=== PATIENT | male | born 1945 | race Hispanic/Latino ===

== ENCOUNTER → 2019-04-29 | Day surgery (SDC) | payer OTHER, MEDICARE ==
[2019-04-19 12:40] LABS: BASOPHILS % 0.7 % (0.0-1.0); EOSINOPHILS # (AUTO) 0.1 (0.0-0.4); HEMATOCRIT 37.9 % (38.2-49.6); HEMOGLOBIN 12.8 g/dL (14.0-18.0); LYMPHOCYTES # (AUTO) 1.7 (1.0-3.2); LYMPHOCYTES % 27.5 % (18.0-39.1); MEAN CORPUSCULAR HEMOGLOBIN 31.4 pg (28-32); MEAN CORPUSCULAR HGB CONC 33.8 g/dL (31-35); MEAN CORPUSCULAR VOLUME 93.1 fL (81-99); MONOCYTES # (AUTO) 0.5 (0.2-0.8); MONOCYTES % 7.7 % (4.4-11.3); NEUTROPHILS # (AUTO) 3.8 (2.1-6.9); NEUTROPHILS % 61.9 % (38.7-80.0); PLATELET COUNT 246 x10e3/uL (140-360); RED BLOOD COUNT 4.07 x10e6/uL (4.3-5.7); RED CELL DISTRIBUTION WIDTH 13.1 % (11.7-14.4)
[~2019-04-29] MED LIST: ASPIR 8181 MG PO; ATORVASTATIN CA20 MG PO; CLOPIDOGREL75 MG PO; GLIPIZIDE ER5 MG PO; ISOSORBIDE MONO20 MG PO; LIDOCAINE HCL 2% LOCAL INJ 5 ML SDV VIAL INJ ONE; LOSARTAN POTAS100 MG PO; METFORMIN HCL850 MG PO; METOPROLOL SUCC50 MG PO; MIDAZOLAM HCL 2 MG/2 ML VIAL ONE; PROPOFOL IV EMULSION 10 MG/ML 50 ML VIAL ONE
[2019-04-29 09:15] VITALS: BP 143/85
== END | disposition home or self-care (01) ==
LOC: OR 06:16
PROVIDERS: ATTEND Internal Medicine Gastroenterology
DX: R12 Heartburn (principal); E11.9 Type 2 diabetes mellitus without complications; I10 Essential (primary) hypertension; E66.3 Overweight; Z68.25 Body mass index [BMI] 25.0-25.9, adult; K21.9 Gastro-esophageal reflux disease without esophagitis; G47.33 Obstructive sleep apnea (adult) (pediatric); I25.10 Atherosclerotic heart disease of native coronary artery without angina pectoris; Z95.5 Presence of coronary angioplasty implant and graft; I48.91 Unspecified atrial fibrillation; K57.30 Diverticulosis of large intestine without perforation or abscess without bleeding; K64.8 Other hemorrhoids; K21.0 Gastro-esophageal reflux disease with esophagitis; K29.70 Gastritis, unspecified, without bleeding; Z01.810 Encounter for preprocedural cardiovascular examination; Z01.812 Encounter for preprocedural laboratory examination; D12.3 Benign neoplasm of transverse colon; Z79.82 Long term (current) use of aspirin; Z79.84 Long term (current) use of oral hypoglycemic drugs
CPT/HCPCS: 36415 ×2; 43239; 45385; 82948; 85025; 88305; 88312; 93005; J2001; J2250; J2704

== ENCOUNTER 2020-11-09 13:25 | Inpatient (IN) | payer MEDICARE, OTHER ==
[~2020-11-09] VITALS: Ht 177.8 cm; Wt 83.0 kg
[~2020-11-09 13:25] MED LIST changes: +FENTANYL CITRATE/PF 100MCG/2 ML INJ ONE; -LIDOCAINE HCL 2% LOCAL INJ 5 ML SDV VIAL INJ ONE; -PROPOFOL IV EMULSION 10 MG/ML 50 ML VIAL ONE
[2020-11-09] MEDS ORDERED: DEXTROSE 5%/0.9% SOD CHL 1,000 ML IV ONE (15:15)
[2020-11-09 15:30] LABS: BASOPHILS % 0.1 % (0.0-1.0); HEMATOCRIT 44.6 % (38.2-49.6); HEMOGLOBIN 15.2 g/dL (14.0-18.0); LYMPHOCYTES # (AUTO) 0.7 (1.0-3.2); LYMPHOCYTES % 3.4 % (18.0-39.1); MEAN CORPUSCULAR HEMOGLOBIN 31.8 pg (28-32); MEAN CORPUSCULAR HGB CONC 34.1 g/dL (31-35); MEAN CORPUSCULAR VOLUME 93.3 fL (81-99); MONOCYTES # (AUTO) 0.9 (0.2-0.8); MONOCYTES % 4.2 % (4.4-11.3); NEUTROPHILS # (AUTO) 19.1 (2.1-6.9); NEUTROPHILS % 91.6 % (38.7-80.0); PLATELET COUNT 263 x10e3/uL (140-360); RED BLOOD COUNT 4.78 x10e6/uL (4.3-5.7); RED CELL DISTRIBUTION WIDTH 13.4 % (11.7-14.4)
[2020-11-09 15:49] LABS: ALBUMIN/GLOBULIN RATIO 1.1 (0.8-2.0); ANION GAP 18.6 mmol/L (8-16); CALCIUM 7.7 mg/dL (8.4-10.2); CREATININE, SERUM 2.54 mg/dL (0.72-1.25)
[2020-11-09 15:50] VITALS: BP 139/80
[2020-11-09 15:55] LABS: POTASSIUM 5.6 mmol/L (3.5-5.1)
[2020-11-09 15:59] VITALS: BP 139/80
[2020-11-09 16:23] VITALS: BP 139/80
[2020-11-09 16:29] VITALS: BP 139/80
[2020-11-09] MEDS ORDERED: DEXTROSE 50% SYRINGE 50 ML IV PRN (16:45)
[2020-11-09] MEDS ORDERED: ACETAMINOPHEN 325 MG TAB PO PRN (16:45)
[2020-11-09] MEDS ORDERED: HYDRALAZINE HCL 20 MG/ML VIAL IV PRN (16:45)
[2020-11-09] MEDS ORDERED: ATROPINE SULFATE 1 MG/ML VIAL ONE (17:38)
[2020-11-09] MEDS ORDERED: SUCCINYLCHOLINE CHLORIDE 20 MG/ML 10ML VIAL ONE (17:38)
[2020-11-09] MEDS ORDERED: NEOSTIGMINE 1 MG/ML 10ML VIAL ONE (17:38)
[2020-11-09] MEDS ORDERED: POVIDONE IODINE 0.05% 0.05 % ML PO ONE (17:38)
[2020-11-09] MEDS ORDERED: KETOROLAC TROMETHAMINE 30 MG/ML VIAL ONE (17:38)
[2020-11-09] MEDS ORDERED: LIDOCAINE HCL 2% LOCAL INJ 5 ML SDV VIAL INJ ONE (17:38)
[2020-11-09] MEDS ORDERED: ONDANSETRON HCL INJ 2MG/ML 2ML 2 MG/ML VIAL ONE (17:38)
[2020-11-09] MEDS ORDERED: CEFOXITIN SOD 1 GM VIAL ONE (17:38)
[2020-11-09] MEDS ORDERED: PROPOFOL IV EMULSION 10 MG/ML 20 ML VIAL ONE (17:38)
[2020-11-09] MEDS ORDERED: ROCURONIUM BROMIDE 10 MG/ML 5ML VIAL IV ONE (17:38)
[2020-11-09] MEDS ORDERED: SEVOFLURANE INHAL SOLN 250 ML PEN BTL ONE (17:38)
[2020-11-09] MEDS ORDERED: ELIQUIS5 MG PO (17:55)
[2020-11-09] MEDS ORDERED: AMIODARONE HCL200 MG PO (17:55)
[2020-11-09] MEDS ORDERED: ULTRAM50 MG PO (17:56)
[2020-11-09] MEDS ORDERED: MORPHINE SULFATE INJ 2 MG/ML SYR IV PRN (18:30)
[2020-11-09] MEDS: PIPERACILLIN/TAZOBACTAM 3.375 GM in SODIUM CHLORIDE 0.9% 50ML 50 ML IV SCH (20:00)
[2020-11-09] MEDS ORDERED: PIPERACILLIN/TAZOBACTAM 3.375 GM in SODIUM CHLORIDE 0.9% 50ML 50 ML IV SCH (20:00)
[2020-11-09] MEDS ORDERED: MEPERIDINE HCL INJ 25 MG/ML VIAL ONE (20:23)
[2020-11-09] MEDS: INSULIN LISPRO 100 UNIT/1 ML 3ML VIAL SQ SCH (21:00)
[2020-11-09] MEDS: ATORVASTATIN 40 MG TAB PO SCH (21:00)
[2020-11-09] MEDS: LACTATED RINGER'S 1,000 ML INJ SCH (21:52)
[2020-11-09 22:03] VITALS: BP 127/77
[2020-11-10] VITALS (11 sets, daily range): BP systolic 119–136; BP diastolic 69–76
[2020-11-10] MEDS: MORPHINE SULFATE INJ 4 MG/ML INJ 1ML IV PRN ×3 (01:00→21:17)
[2020-11-10] MEDS: PIPERACILLIN/TAZOBACTAM 3.375 GM in SODIUM CHLORIDE 0.9% 50ML 50 ML IV SCH ×4 (02:13→21:04)
[2020-11-10] MEDS: LACTATED RINGER'S 1,000 ML INJ SCH ×3 (04:30→21:04)
[2020-11-10 04:59] LABS: BASOPHILS % 0.4 % (0.0-1.0); HEMATOCRIT 39.9 % (38.2-49.6); HEMOGLOBIN 13.8 g/dL (14.0-18.0); LYMPHOCYTES # (AUTO) 0.5 (1.0-3.2); LYMPHOCYTES % 6.3 % (18.0-39.1); MEAN CORPUSCULAR HEMOGLOBIN 31.7 pg (28-32); MEAN CORPUSCULAR HGB CONC 34.6 g/dL (31-35); MEAN CORPUSCULAR VOLUME 91.5 fL (81-99); MONOCYTES # (AUTO) 0.6 (0.2-0.8); MONOCYTES % 7.9 % (4.4-11.3); NEUTROPHILS # (AUTO) 6.8 (2.1-6.9); NEUTROPHILS % 85.3 % (38.7-80.0); PLATELET COUNT 211 x10e3/uL (140-360); RED BLOOD COUNT 4.36 x10e6/uL (4.3-5.7); RED CELL DISTRIBUTION WIDTH 13.2 % (11.7-14.4)
[2020-11-10 05:29] LABS: ALBUMIN 2.9 g/dL (3.5-5.0); ALBUMIN/GLOBULIN RATIO 1.1 (0.8-2.0); ANION GAP 16.3 mmol/L (8-16); CALCIUM 7.6 mg/dL (8.4-10.2); CREATININE, SERUM 1.91 mg/dL (0.72-1.25); POTASSIUM 4.3 mmol/L (3.5-5.1)
[2020-11-10] MEDS: INSULIN LISPRO 100 UNIT/1 ML 3ML VIAL SQ SCH ×4 (07:30→21:00)
[2020-11-10] MEDS: ISOSORBIDE MONONITRATE 30 MG TAB CR PO SCH (08:20)
[2020-11-10] MEDS: ASPIRIN 81 MG CHEW TAB PO SCH (08:20)
[2020-11-10] MEDS: METOPROLOL SUCCINATE 50 MG TAB XL PO SCH (08:21)
[2020-11-10 10:53] LABS: NEUTROPHILS % (MANUAL) 82 % (40-74)
[2020-11-10 10:54] LABS: BAND NEUTROPHILS % (MANUAL) 6 %; LYMPHOCYTES % (MANUAL) 6 % (19-48); METAMYELOCYTES % (MANUAL) 1 % (0-0); MONOCYTES % (MANUAL) 3 % (3.4-9.0)
[2020-11-10 10:59] LABS: PLATELET ESTIMATE ADEQUATE; PLATELET MORPHOLOGY COMMENT NORMAL; RBC MORPHOLOGY COMMENT NORMAL
[2020-11-10] MEDS: ONDANSETRON HCL INJ 2MG/ML 2ML 2 MG/ML VIAL IV PRN (15:51)
[2020-11-10] MEDS: ATORVASTATIN 40 MG TAB PO SCH (19:33)
[2020-11-11] VITALS (8 sets, daily range): BP systolic 126–149; BP diastolic 74–83
[2020-11-11] MEDS: PIPERACILLIN/TAZOBACTAM 3.375 GM in SODIUM CHLORIDE 0.9% 50ML 50 ML IV SCH ×4 (02:25→20:42)
[2020-11-11] MEDS: LACTATED RINGER'S 1,000 ML INJ SCH ×3 (05:40→19:25)
[2020-11-11 05:50] LABS: BASOPHILS % 0.2 % (0.0-1.0); EOSINOPHILS % 0.8 % (0.0-6.0); HEMATOCRIT 34.2 % (38.2-49.6); HEMOGLOBIN 11.7 g/dL (14.0-18.0); LYMPHOCYTES # (AUTO) 0.8 (1.0-3.2); LYMPHOCYTES % 15.8 % (18.0-39.1); MEAN CORPUSCULAR HEMOGLOBIN 31.6 pg (28-32); MEAN CORPUSCULAR HGB CONC 34.2 g/dL (31-35); MEAN CORPUSCULAR VOLUME 92.4 fL (81-99); MONOCYTES # (AUTO) 0.4 (0.2-0.8); MONOCYTES % 8.1 % (4.4-11.3); NEUTROPHILS # (AUTO) 3.8 (2.1-6.9); NEUTROPHILS % 74.9 % (38.7-80.0); PLATELET COUNT 162 x10e3/uL (140-360); RED CELL DISTRIBUTION WIDTH 13.4 % (11.7-14.4)
[2020-11-11 06:13] LABS: ALBUMIN 2.5 g/dL (3.5-5.0); ALBUMIN/GLOBULIN RATIO 0.9 (0.8-2.0); ANION GAP 15.7 mmol/L (8-16); CALCIUM 7.8 mg/dL (8.4-10.2); CREATININE, SERUM 1.18 mg/dL (0.72-1.25); POTASSIUM 3.7 mmol/L (3.5-5.1)
[2020-11-11] MEDS: INSULIN LISPRO 100 UNIT/1 ML 3ML VIAL SQ SCH ×4 (07:30→19:09)
[2020-11-11 08:09] LABS: BAND NEUTROPHILS % (MANUAL) 3 %; EOSINOPHILS % (MANUAL) 1 % (0-7); LYMPHOCYTES % (MANUAL) 19 % (19-48); MONOCYTES % (MANUAL) 7 % (3.4-9.0); NEUTROPHILS % (MANUAL) 70 % (40-74)
[2020-11-11] MEDS: ASPIRIN 81 MG CHEW TAB PO SCH (08:13)
[2020-11-11] MEDS: METOPROLOL SUCCINATE 50 MG TAB XL PO SCH (08:16)
[2020-11-11] MEDS: ISOSORBIDE MONONITRATE 30 MG TAB CR PO SCH (08:16)
[2020-11-11] MEDS: MORPHINE SULFATE INJ 4 MG/ML INJ 1ML IV PRN ×3 (11:38→23:23)
[2020-11-11] MEDS: ATORVASTATIN 40 MG TAB PO SCH (18:55)
[2020-11-12] VITALS (9 sets, daily range): BP systolic 128–152; BP diastolic 75–90
[2020-11-12] MEDS: PIPERACILLIN/TAZOBACTAM 3.375 GM in SODIUM CHLORIDE 0.9% 50ML 50 ML IV SCH ×4 (02:30→20:55)
[2020-11-12] MEDS: LACTATED RINGER'S 1,000 ML INJ SCH ×3 (02:33→20:15)
[2020-11-12 05:40] LABS: BASOPHILS % 0.2 % (0.0-1.0); EOSINOPHILS # (AUTO) 0.2 (0.0-0.4); EOSINOPHILS % 2.8 % (0.0-6.0); HEMATOCRIT 33.2 % (38.2-49.6); HEMOGLOBIN 11.2 g/dL (14.0-18.0); LYMPHOCYTES # (AUTO) 1.1 (1.0-3.2); LYMPHOCYTES % 17.6 % (18.0-39.1); MEAN CORPUSCULAR HEMOGLOBIN 31.4 pg (28-32); MEAN CORPUSCULAR HGB CONC 33.7 g/dL (31-35); MONOCYTES # (AUTO) 0.5 (0.2-0.8); MONOCYTES % 7.4 % (4.4-11.3); NEUTROPHILS # (AUTO) 4.4 (2.1-6.9); NEUTROPHILS % 71.8 % (38.7-80.0); PLATELET COUNT 162 x10e3/uL (140-360); RED BLOOD COUNT 3.57 x10e6/uL (4.3-5.7)
[2020-11-12 06:09] LABS: ALANINE AMINOTRANSFERASE 14 IU/L (0-55); ALBUMIN 2.3 g/dL (3.5-5.0); ALBUMIN/GLOBULIN RATIO 0.8 (0.8-2.0); ALKALINE PHOSPHATASE 34 IU/L (40-150); ANION GAP 13.6 mmol/L (8-16); BLOOD UREA NITROGEN 24 mg/dL (7-26); BUN/CREATININE RATIO 26 (6-25); CARBON DIOXIDE 24 mmol/L (22-29); CHLORIDE 106 mmol/L (98-107); CREATININE, SERUM 0.91 mg/dL (0.72-1.25); EST GLOMERULAR FILTRATION RATE > 60 ML/MIN (60-); GLUCOSE 109 mg/dL (74-118); POTASSIUM 3.6 mmol/L (3.5-5.1); SODIUM 140 mmol/L (136-145)
[2020-11-12] MEDS: INSULIN LISPRO 100 UNIT/1 ML 3ML VIAL SQ SCH ×4 (06:34→20:39)
[2020-11-12] MEDS: ASPIRIN 81 MG CHEW TAB PO SCH (09:00)
[2020-11-12] MEDS ORDERED: CALCIUM GLUCONATE 10% INJ 4.65 MEQ in SODIUM CHLORIDE 0.9% 50ML 50 ML IV ONE (15:00)
[2020-11-12] MEDS: ISOSORBIDE MONONITRATE 30 MG TAB CR PO SCH (16:40)
[2020-11-12] MEDS: METOPROLOL SUCCINATE 50 MG TAB XL PO SCH (16:40)
[2020-11-12] MEDS: FAMOTIDINE 20 MG/2 ML VIAL IV SCH (17:46)
[2020-11-12] MEDS: ONDANSETRON HCL INJ 2MG/ML 2ML 2 MG/ML VIAL IV PRN (18:15)
[2020-11-12] MEDS: ATORVASTATIN 40 MG TAB PO SCH (20:39)
[2020-11-13] VITALS (12 sets, daily range): BP systolic 117–141; BP diastolic 70–78
[2020-11-13] MEDS: PIPERACILLIN/TAZOBACTAM 3.375 GM in SODIUM CHLORIDE 0.9% 50ML 50 ML IV SCH ×4 (02:07→21:27)
[2020-11-13] MEDS: LACTATED RINGER'S 1,000 ML INJ SCH ×3 (03:57→21:27)
[2020-11-13] MEDS: ONDANSETRON HCL INJ 2MG/ML 2ML 2 MG/ML VIAL IV PRN (04:03)
[2020-11-13 05:39] LABS: BASOPHILS % 0.1 % (0.0-1.0); EOSINOPHILS % 0.1 % (0.0-6.0); HEMATOCRIT 30.2 % (38.2-49.6); HEMOGLOBIN 10.5 g/dL (14.0-18.0); LYMPHOCYTES # (AUTO) 0.6 (1.0-3.2); LYMPHOCYTES % 7.9 % (18.0-39.1); MEAN CORPUSCULAR HEMOGLOBIN 31.3 pg (28-32); MEAN CORPUSCULAR HGB CONC 34.8 g/dL (31-35); MEAN CORPUSCULAR VOLUME 89.9 fL (81-99); MONOCYTES # (AUTO) 0.4 (0.2-0.8); NEUTROPHILS # (AUTO) 6.8 (2.1-6.9); NEUTROPHILS % 86.4 % (38.7-80.0); PLATELET COUNT 201 x10e3/uL (140-360); RED BLOOD COUNT 3.36 x10e6/uL (4.3-5.7); RED CELL DISTRIBUTION WIDTH 12.8 % (11.7-14.4)
[2020-11-13 05:55] LABS: ANION GAP 15.5 mmol/L (8-16); BLOOD UREA NITROGEN 28 mg/dL (7-26); BUN/CREATININE RATIO 33 (6-25); CALCIUM 8.2 mg/dL (8.4-10.2); CARBON DIOXIDE 22 mmol/L (22-29); CHLORIDE 106 mmol/L (98-107); CREATININE, SERUM 0.84 mg/dL (0.72-1.25); EST GLOMERULAR FILTRATION RATE > 60 ML/MIN (60-); GLUCOSE 151 mg/dL (74-118); POTASSIUM 3.5 mmol/L (3.5-5.1); SODIUM 140 mmol/L (136-145)
[2020-11-13] MEDS: INSULIN LISPRO 100 UNIT/1 ML 3ML VIAL SQ SCH ×4 (07:30→21:00)
[2020-11-13] MEDS: ASPIRIN 81 MG CHEW TAB PO SCH (08:18)
[2020-11-13] MEDS: ISOSORBIDE MONONITRATE 30 MG TAB CR PO SCH (08:19)
[2020-11-13] MEDS: METOPROLOL SUCCINATE 50 MG TAB XL PO SCH (08:23)
[2020-11-13] MEDS: FAMOTIDINE 20 MG/2 ML VIAL IV SCH ×2 (09:35→15:45)
[2020-11-13] MEDS: APIXABAN 5 MG TABLET PO SCH (15:46)
[2020-11-13] MEDS: ATORVASTATIN 40 MG TAB PO SCH (21:00)
[2020-11-14] VITALS: BP 117/66
[2020-11-14] MEDS: PIPERACILLIN/TAZOBACTAM 3.375 GM in SODIUM CHLORIDE 0.9% 50ML 50 ML IV SCH ×3 (02:07→14:50)
[2020-11-14 03:46] VITALS: BP 139/78
[2020-11-14] MEDS: LACTATED RINGER'S 1,000 ML INJ SCH (04:52)
[2020-11-14 05:22] LABS: BASOPHILS % 0.1 % (0.0-1.0); EOSINOPHILS # (AUTO) 0.2 (0.0-0.4); EOSINOPHILS % 2.8 % (0.0-6.0); HEMATOCRIT 29.8 % (38.2-49.6); HEMOGLOBIN 10.4 g/dL (14.0-18.0); LYMPHOCYTES # (AUTO) 0.9 (1.0-3.2); LYMPHOCYTES % 12.2 % (18.0-39.1); MEAN CORPUSCULAR HEMOGLOBIN 31.7 pg (28-32); MEAN CORPUSCULAR HGB CONC 34.9 g/dL (31-35); MEAN CORPUSCULAR VOLUME 90.9 fL (81-99); MONOCYTES # (AUTO) 0.7 (0.2-0.8); MONOCYTES % 9.3 % (4.4-11.3); NEUTROPHILS # (AUTO) 5.4 (2.1-6.9); NEUTROPHILS % 74.1 % (38.7-80.0); PLATELET COUNT 194 x10e3/uL (140-360); RED BLOOD COUNT 3.28 x10e6/uL (4.3-5.7); RED CELL DISTRIBUTION WIDTH 12.8 % (11.7-14.4)
[2020-11-14 05:45] LABS: ANION GAP 15.3 mmol/L (8-16); BLOOD UREA NITROGEN 27 mg/dL (7-26); BUN/CREATININE RATIO 27 (6-25); CALCIUM 7.9 mg/dL (8.4-10.2); CARBON DIOXIDE 23 mmol/L (22-29); CHLORIDE 107 mmol/L (98-107); CREATININE, SERUM 0.99 mg/dL (0.72-1.25); EST GLOMERULAR FILTRATION RATE > 60 ML/MIN (60-); GLUCOSE 122 mg/dL (74-118); MAGNESIUM 1.8 MG/DL (1.3-2.1); POTASSIUM 3.3 mmol/L (3.5-5.1); SODIUM 142 mmol/L (136-145)
[2020-11-14] MEDS ORDERED: POTASSIUM CHLORIDE 10MEQ EA PO ONE (07:15)
[2020-11-14] MEDS ORDERED: CHLORASEPTIC SPRAY 177 ML BTL MM PRN (07:30)
[2020-11-14] MEDS: INSULIN LISPRO 100 UNIT/1 ML 3ML VIAL SQ SCH ×2 (07:30→13:49)
[2020-11-14] MEDS: ISOSORBIDE MONONITRATE 30 MG TAB CR PO SCH (08:58)
[2020-11-14] MEDS: APIXABAN 5 MG TABLET PO SCH (08:58)
[2020-11-14] MEDS: FAMOTIDINE 20 MG/2 ML VIAL IV SCH (08:58)
[2020-11-14] MEDS: ASPIRIN 81 MG CHEW TAB PO SCH (08:58)
[2020-11-14 08:59] VITALS: BP 134/83
[2020-11-14] MEDS: METOPROLOL SUCCINATE 50 MG TAB XL PO SCH (08:59)
[2020-11-14 09:28] VITALS: BP 134/83
[2020-11-14 12:48] VITALS: BP 128/79
[2020-11-14] MEDS ORDERED: TYLENOL # 31 EA PO (12:55)
== END 2020-11-14 15:17 | disposition home or self-care (01) | DRG 336 ==
LOC: MED/SURG2 15:04 → IMCU 19:42 → MED/SURG 11-12 11:53
PROVIDERS: ADMIT Internal Medicine; ATTEND Internal Medicine
PROC: 0DJD4ZZ Inspection of Lower Intestinal Tract, Percutaneous Endoscopic Approach (ICD-10-PCS; 2020-11-09)
PROC: 0DNN0ZZ Release Sigmoid Colon, Open Approach (ICD-10-PCS; principal; 2020-11-09 19:00)
DX: K43.6 Other and unspecified ventral hernia with obstruction, without gangrene (principal); N17.9 Acute kidney failure, unspecified; I10 Essential (primary) hypertension; E78.5 Hyperlipidemia, unspecified; I25.10 Atherosclerotic heart disease of native coronary artery without angina pectoris; Z95.5 Presence of coronary angioplasty implant and graft; E11.9 Type 2 diabetes mellitus without complications; Z20.822 Contact with and (suspected) exposure to COVID-19
CPT/HCPCS: 36415; 74018; 80048; 80053; 82948; 83605; 83735; 85025; 97139; J0330; J0461; J0610; J0694; J1885; J2001; J2175; J2250; J2270; J2405; J2543; J2710; J3010; J7042; J7121; U0002

== ENCOUNTER 2020-12-06 14:01 | Emergency (ER) | payer MEDICARE ==
[~2020-12-06] VITALS: Ht 175.3 cm; Wt 81.6 kg
[~2020-12-06 14:01] MED LIST changes: +AMIODARONE HCL200 MG PO; +ELIQUIS5 MG PO; -FENTANYL CITRATE/PF 100MCG/2 ML INJ ONE; -MIDAZOLAM HCL 2 MG/2 ML VIAL ONE; +TYLENOL # 31 EA PO; +ULTRAM50 MG PO
[2020-12-06 15:14] LABS: ANION GAP 16.1 mmol/L (8-16); CALCIUM 9.5 mg/dL (8.4-10.2); CREATININE, SERUM 1.23 mg/dL (0.72-1.25); POTASSIUM 4.1 mmol/L (3.5-5.1)
[2020-12-06 16:21] VITALS: BP 136/52
== END 2020-12-06 16:22 | disposition home or self-care (01) ==
LOC: ER 15:06
DX: Z04.89 Encounter for examination and observation for other specified reasons (principal); E11.65 Type 2 diabetes mellitus with hyperglycemia; I10 Essential (primary) hypertension; E78.5 Hyperlipidemia, unspecified; I25.10 Atherosclerotic heart disease of native coronary artery without angina pectoris; R94.31 Abnormal electrocardiogram [ECG] [EKG]; Z95.5 Presence of coronary angioplasty implant and graft
CPT/HCPCS: 36415; 80048; 93005; 99283